=== PATIENT | male | born 1965 | race Caucasian/White ===

== ENCOUNTER → 2025-04-12 | Outpatient (CLI) | payer OTHER, SELFPAY ==
[2025-04-12 18:30] LABS: Hematocrit 47.1 % (40-54); Hemoglobin 16.3 g/dL (13.0-16.5); Immature Granulocytes Count 0.040 X10^3/uL (0.0-0.0); Mean Corp Hgb Conc 34.6 g/dL (32-36); Mean Corpuscular Volume 83.7 fL (80-94); Mean Platelet Vol. 10.6 fl (6.2-12.0); NRBC Flagged by Analyzer 0 % (0-5); Platelet Count 371 K/mm3 (150-450); RBC Distribution Width CV 13.2 % (11.6-14.6); RBC Distribution Width SD 39.8 fl (35.1-43.9); Red Blood Count 5.63 M/mm3 (4.6-6.2); White Blood Count 10.4 K/mm3 (4.4-11.0)
[2025-04-12 19:16] LABS: AST(SGOT) 23 U/L (<=37); Alanine Aminotransfer ALT/SGPT 28 U/L (<=46); Albumin, Serum 4.4 g/dL (3.5-5.0); Alkaline Phosphatase 72 U/L (40-129); Anion Gap 12 (5-15); BUN 17 mg/dL (4-19); BUN/Creat Ratio 16.3 RATIO (10-20); Calcium,Total 9.7 mg/dL (7.6-11.0); Carbon Dioxide 26.1 mmol/L (21.0-32.0); Chloride 100 mmol/L (98-108); Cholesterol 258 mg/dL (<=200); Globulin 3.3 g/dL (2.2-4.2); Glucose 84 mg/dL (70-99); Low Density Lipoprotein Calc. 129 mg/dL; Potassium 3.8 mmol/L (3.3-5.1); Triglycerides 469 mg/dL; Very Low Density Lipoprotein 94 mg/dL (5-40); Vitamin B12 279 pg/mL (180-914); Vitamin D,25 Hydroxy 35.1 ng/mL (30-100); cholesterol:hdl ratio screen 5.73
== END | disposition home or self-care (01) ==
LOC: MTLAB 15:02
PROVIDERS: PCP Family Medicine; Referring Provider Family Medicine; Visit Provider Family Medicine
DX: Z00.00 Encounter for general adult medical examination without abnormal findings (principal); Z13.1 Encounter for screening for diabetes mellitus; Z13.220 Encounter for screening for lipoid disorders; I10 Essential (primary) hypertension; R53.83 Other fatigue; R68.82 Decreased libido
CPT/HCPCS: 36415; 80053; 80061; 82306; 82607; 84403; 84443; 85025